=== PATIENT | female | born 1965 | race African-American/Black ===

== ENCOUNTER → 2017-10-06 | Outpatient (CLI) | payer SELFPAY ==
--- NOTE | 2017-10-06 13:15 | CT ---
CORONARY CALCIUM SCORE CLINICAL INDICATION: Screening. COMPARISON: None PROCEDURE: Gated images of the coronary arteries. Coronary artery calcium scoring was performed. FINDINGS: Coronary calcium scoring - 0 LM: 0 LAD: 0 LCX: 0 RCA: 0 IMPRESSION: 1. Calcium score of 0. This places the patient at approximately the 0-25th percentile for females of equivalent age. No identifiable plaque. Less than 5% risk of coronary artery disease. Reported By:
== END ==
LOC: RAD 10:39
PROVIDERS: ATTEND Internal Medicine Cardiovascular Disease
DX: Z13.6 Encounter for screening for cardiovascular disorders (principal)